=== PATIENT | female | born 1975 | race Caucasian/White ===

== ENCOUNTER 2021-06-14 16:39 | Emergency (ER) | payer BC ==
[2021-06-14] MEDS ORDERED: ZOFRAN ODT 4 MG4 MG SL (20:41)
== END 2021-06-14 21:00 | disposition home or self-care (01) ==
LOC: ER1 16:39
DX: S09.90XA Unspecified injury of head, initial encounter (principal); E03.9 Hypothyroidism, unspecified; F41.9 Anxiety disorder, unspecified; F17.200 Nicotine dependence, unspecified, uncomplicated; F32.9 Major depressive disorder, single episode, unspecified; Z88.0 Allergy status to penicillin; W19.XXXA Unspecified fall, initial encounter
CPT/HCPCS: 70450; 72125; 99283